=== PATIENT | male | born 1965 | race American Indian/Alaskan Native ===

== ENCOUNTER 2017-10-12 13:48 | Outpatient (CLI) | payer MEDICARE ==
--- NOTE | 2017-10-12 16:42 | XRay Report ---
FINAL REPORT EXAM: XR SPINE LUMBOSACRAL 4+V HISTORY: LOW BACK PAIN TECHNIQUE: Frontal, lateral, bilateral oblique views lumbar spine and coned-down lateral view lumbosacral junction. Comparison: None FINDINGS: There is mild retrolisthesis of L3 on L4 and L4 on L5. The vertebral heights are maintained. There is loss of height of the L3-L4 and L4-L5 discs with associated endplate osteophyte formation. There is evidence of degenerative facet change at the L5-S1 level. The paraspinous soft tissues are unremarkable. IMPRESSION: 1. Evidence of degenerative disc change L3-L4 and L4-L5 levels and degenerative facet change L5-S1 level. If further imaging is required, MRI may be helpful.
--- NOTE | 2017-10-12 16:51 | XRay Report ---
FINAL REPORT EXAM: XR SPINE CERVICAL 4-5V HISTORY: CERVICALGIA TECHNIQUE: Frontal, lateral, bilateral oblique and odontoid views cervical spine Comparison: None FINDINGS: Bony alignment is normal. The vertebral heights are maintained. There is loss of height of the disc spaces throughout the cervical spine with relative sparing of the C6-C7 disc. There is multiple level endplate osteophyte formation and uncovertebral degenerative change. There is evidence of multiple level mild bony foraminal stenosis, left greater than right. The paraspinous soft tissues are unremarkable. IMPRESSION: 1. Cervical spondylosis with multiple level degenerative disc and endplate change. If further imaging is required, MRI may be helpful.
== END 2017-10-12 13:49 | disposition home or self-care (01) ==
LOC: XRAY 13:48
PROVIDERS: ATTEND Orthopaedic Surgery
DX: M47.897 Other spondylosis, lumbosacral region (principal); M47.892 Other spondylosis, cervical region
CPT/HCPCS: 72050; 72110